=== PATIENT | female | born 1950 | race Caucasian/White ===

== ENCOUNTER → 2020-08-08 | Outpatient (CLI) | payer MEDICARE, OTHER, SELFPAY | END | disposition home or self-care (01) | LOC: MTDU 17:57 | PROVIDERS: PCP Internal Medicine; Referring Provider Nurse Practitioner Family; Visit Provider Nurse Practitioner Family | DX: Z20.828 Contact with and (suspected) exposure to other viral communicable diseases (principal) | CPT/HCPCS: 87635; C9803; U0003 ==

== ENCOUNTER → 2021-07-21 11:56 | Outpatient (CLI) | payer MEDICARE, OTHER, SELFPAY ==
[2021-07-21 15:15] LABS: Absolute Lymphocyte Count 1.86 X10^3/uL (0.83-4.51); Absolute Neutrophil Count 3.5 X10^3/uL (2.0-7.7); Basophil# 0.01 X10^3/uL; Basophil% 0.2 % (0-1); Eosinophil# 0.08 X10^3/uL; Eosinophils% 1.4 % (0-5); Hematocrit 43.1 % (37-47); Hemoglobin 13.5 g/dL (12.0-15.0); Lymphocyte # 1.86 X10^3/ul (0.83-4.51); Lymphocyte % 31.7 % (19-41); Mean Corp Hgb Conc 31.3 g/dL (32-36); Mean Corpuscular Hgb 29.5 pg (27.0-32.0); Mean Corpuscular Volume 94.1 fL (81-99); Monocyte# 0.41 X10^3/uL; NRBC Flagged by Analyzer 0 % (0-5); Neutrophil # 3.49 X10^3/uL (2.7-7.7); Neutrophil % 59.5 % (47-70); Platelet Count 193 K/mm3 (150-450); RBC Distribution Width CV 13.2 % (11.6-14.6); RBC Distribution Width SD 45.3 fl (35.1-43.9); Red Blood Count 4.58 M/mm3 (4.2-5.4); White Blood Count 5.9 K/mm3 (4.4-11.0)
[2021-07-21 15:21] LABS: ALB/GLOB Ratio 0.8 RATIO (0.9-2.4); AST(SGOT) 21 U/L (15-37); Alanine Aminotransfer ALT/SGPT 31 U/L (13-56); Albumin, Serum 3.8 g/dL (3.2-5.0); Alkaline Phosphatase 90 U/L (45-117); Anion Gap 5 (5-15); BUN 16 mg/dL (7-18); BUN/Creat Ratio 19.4 RATIO (10-20); Calcium,Total 9.4 mg/dL (8.5-10.1); Chloride 110 mmol/L (98-107); Cholesterol 235 mg/dL (200); Creatinine, Serum 0.82 mg/dL (0.55-1.02); EST Glomerular Filtration Rate 73 mL/min (>60); Est Glom Filt Rate - Afr Amer 88 mL/min (>60); Globulin 4.5 g/dL (2.2-4.2); Glucose 93 mg/dL (74-106); High Density Lipoprotein 81 mg/dL; Potassium 4.9 mmol/L (3.5-5.1); Protein, Total 8.3 g/dL (6.4-8.2); Sodium Level 144 mmol/L (136-145); Triglycerides 93 mg/dL; Very Low Density Lipoprotein 19 mg/dL (5-40)
== END ==
PROVIDERS: PCP Internal Medicine; Referring Provider Internal Medicine; Visit Provider Internal Medicine
DX: I10 Essential (primary) hypertension (principal)
CPT/HCPCS: 36415; 80053; 80061; 85025

== ENCOUNTER → 2021-08-22 12:53 | Outpatient (CLI) | payer MEDICARE, OTHER, SELFPAY ==
--- NOTE | 2021-08-22 13:02 | BD_ITS ---
STUDY: DUAL ENERGY X-RAY ABSORPTIOMETRY / DXA REASON FOR EXAM: Female, 71 years old. Osteopenia TECHNIQUE: Bone Mineral Density (BMD) measurements of lumbar spine and bilateral hips were obtained. COMPARISON: Comparison is made with prior examination dated 07/30/2017. FINDINGS: Lumbar Spine (L1-L4): g/cm2 (1.062) / T-score (0.1) / Z-score (2.2) Findings are suggestive of normal bone density with a low fracture risk. Left Femur Total: g/cm2 (0.865) / T-score (-0.6) / Z-score (0.8) Left Femoral Neck: g/cm2 (0.758) / T-score (-0.8) / Z-score (1.0) Right Femur Total: g/cm2 (0.867) / T-score (-0.6) / Z-score (0.9) Right Femoral Neck: g/cm2 (0.693) / T-score (-1.4) / Z-score (0.4) The T-Scores on the most recent prior examination were: Lumbar Spine (L1-L4): There has been improvement of bone density since the previous examination. Left Femur Total: which represents a worsening of 4.9%. Right Femur Total: which represents a worsening of 2.5%. BD/Dexa Bone Density Study IMPRESSION: The patient is considered osteopenic as outlined below according to World Bill Organization (WHO) criteria with a low fracture risk. There has been worsening of bone density since the previous examination. Reference Information: The T-score is the number of standard deviations above or below the standard which is normal for young adults at their peak bone mineral density. The World Health Organization (WHO) interprets the T-scores as follows: Above -1 Normal bone density Between -1 and -2.5 Osteopenia Equal to / or below -2.5 Osteoporosis As a practical clinical guideline, osteopenia may be graded as follows: Mild -1 through -1.5 Moderate -1.6 through -2.0 Severe -2.1 through -2.4 The Z-score is the number of standard deviations above or below age-matched controls. A Z-score of less than -1.5 would be considered abnormal. References: 1. NIH Osteoporosis and Related Bone Diseases www osteo.org 2. International Society for Clinical Densitometry www iscd.org 3. National Osteoporosis Foundation www nof.org Electronically Signed: Kenneth Parrish MD at 14:20 EDT , Service support ,
== END ==
PROVIDERS: PCP Internal Medicine; Visit Provider Internal Medicine
DX: Z78.0 Asymptomatic menopausal state (principal)
CPT/HCPCS: 77080

== ENCOUNTER → 2022-09-20 | Outpatient (CLI) | payer MEDICARE, OTHER, SELFPAY ==
--- NOTE | 2022-09-20 14:48 | BI_ITS ---
MAMMOGRAPHY - BILATERAL SCREENING REASON FOR EXAM: Female, 72 years old. Routine annual screening examination. PERTINENT HISTORY: Grandmother with breast cancer. TECHNIQUE: Digital bilateral breast nai (3D mammographic acquisition) in the CC and MLO projections. 2-D mediolateral oblique (MLO) and craniocaudad (CC) views of both breasts were obtained. CAD: Full Field Digital Mammography with Computer Added Detection was performed. COMPARISON: Comparison is made with prior examination dated 05/21/2019. FINDINGS: Breast Composition: The breasts are heterogeneously dense, which may obscure small masses. There is a 10.4 mm x 9.1 mm well-defined nodule in the slightly upper deep central portion of the left breast. Correlation with ultrasound is recommended. No other significant abnormalities are identified. BI/SCRN MAMM (CAD)W/NAI BILAT IMPRESSION: 10.4 mm x 9.1 mm well-defined nodule in the slightly upper deep central portion of the left breast. Correlation with ultrasound is recommended. ASSESSMENT CATEGORY: BIRADS Category 0: Incomplete. Need additional imaging evaluation. A letter regarding these results will be sent to the patient by the facility within 30 days. Approximately 10% of breast cancers are not detected by mammography. A normal mammogram should not delay biopsy of a clinically suspicious abnormality. [id number] Electronically Signed: Kenneth Parrish MD at 8:27 EST ,
== END | disposition home or self-care (01) ==
LOC: OPBI 14:47
PROVIDERS: PCP Internal Medicine; Visit Provider Internal Medicine
DX: Z12.31 Encounter for screening mammogram for malignant neoplasm of breast (principal); Z80.3 Family history of malignant neoplasm of breast
CPT/HCPCS: 77063; 77067

== ENCOUNTER → 2022-09-25 | Outpatient (CLI) | payer MEDICARE, OTHER, SELFPAY ==
--- NOTE | 2022-09-25 14:54 | US_ITS ---
STUDY: ULTRASOUND BREAST - LEFT REASON FOR EXAM: Female, 72 years old. Abnormal mammogram. TECHNIQUE: Axial and longitudinal images of the LEFT breast were performed with a high resolution ultrasound transducer. # OF IMAGES: 6 COMPARISON: Outside mammograms dated September 20, 2022 and prior breast ultrasound dated December 01, 2019. FINDINGS: LEFT Breast: At the 12:00 position of the left breast 3 cm from the nipple there are 2 anechoic structures, one measuring 1.2 cm x 7 mm 11 mm and another smaller one measuring approximately 5 mm. Both of these lesions are compatible with simple cysts. US/Breast Limited Unilateral IMPRESSION: Simple cyst in the left breast corresponding to the mammographic abnormality. Yearly screening mammogram recommended. ASSESSMENT CATEGORY: BIRADS Category 2: Benign. A letter regarding these results will be sent to the patient by the facility within 30 days. Electronically Signed: Tay Adam, at 10:58 EST ,
== END | disposition home or self-care (01) ==
LOC: OPUS 14:52
PROVIDERS: PCP Internal Medicine; Visit Provider Internal Medicine
DX: R92.8 Other abnormal and inconclusive findings on diagnostic imaging of breast (principal); N60.02 Solitary cyst of left breast
CPT/HCPCS: 76642

== ENCOUNTER → 2022-10-03 | Outpatient (CLI) | payer MEDICARE, OTHER, SELFPAY ==
[2022-10-03 12:27] LABS: Absolute Lymphocyte Count 1.76 X10^3/uL (0.83-4.51); Absolute Neutrophil Count 2.9 X10^3/uL (2.0-7.7); Basophil# 0.01 X10^3/uL; Basophil% 0.2 % (0-1); Eosinophil# 0.09 X10^3/uL; Eosinophils% 1.7 % (0-5); Hematocrit 41.7 % (37-47); Hemoglobin 13.4 g/dL (12.0-15.0); Lymphocyte # 1.76 X10^3/ul (0.83-4.51); Lymphocyte % 33.8 % (19-41); Mean Corp Hgb Conc 32.1 g/dL (32-36); Mean Corpuscular Hgb 29.6 pg (27.0-32.0); Mean Corpuscular Volume 92.3 fL (81-99); Mean Platelet Vol. 11.3 fl (6.2-12.0); Monocyte# 0.39 X10^3/uL; Monocyte% 7.5 % (0-10); NRBC Flagged by Analyzer 0 % (0-5); Neutrophil # 2.94 X10^3/uL (2.7-7.7); Neutrophil % 56.6 % (47-70); Platelet Count 185 K/mm3 (150-450); RBC Distribution Width CV 13.3 % (11.6-14.6); RBC Distribution Width SD 45.3 fl (35.1-43.9); Red Blood Count 4.52 M/mm3 (4.2-5.4); White Blood Count 5.2 K/mm3 (4.4-11.0)
[2022-10-03 12:47] LABS: ALB/GLOB Ratio 0.9 RATIO (0.9-2.4); AST(SGOT) 17 U/L (15-37); Alanine Aminotransfer ALT/SGPT 27 U/L (13-56); Albumin, Serum 3.8 g/dL (3.2-5.0); Alkaline Phosphatase 83 U/L (45-117); Anion Gap 6 (5-15); BUN 16 mg/dL (7-18); BUN/Creat Ratio 21.1 RATIO (10-20); Calcium,Total 9.3 mg/dL (8.5-10.1); Chloride 107 mmol/L (98-107); Cholesterol 258 mg/dL (200); Creatinine, Serum 0.76 mg/dL (0.55-1.02); EST Glomerular Filtration Rate 80 mL/min (>60); Est Glom Filt Rate - Afr Amer 97 mL/min (>60); Globulin 4.1 g/dL (2.2-4.2); Glucose 94 mg/dL (74-106); High Density Lipoprotein 84 mg/dL; Protein, Total 7.9 g/dL (6.4-8.2); Sodium Level 141 mmol/L (136-145); Triglycerides 79 mg/dL; Very Low Density Lipoprotein 16 mg/dL (5-40)
== END | disposition home or self-care (01) ==
LOC: BIMLAB 10:17
PROVIDERS: PCP Internal Medicine; Referring Provider Internal Medicine; Visit Provider Internal Medicine
DX: I10 Essential (primary) hypertension (principal)
CPT/HCPCS: 36415; 80053; 80061; 85025

== ENCOUNTER → 2023-09-24 | Outpatient (CLI) | payer MEDICARE, OTHER, SELFPAY ==
--- NOTE | 2023-09-24 10:53 | BI_ITS ---
MAMMOGRAPHY - BILATERAL SCREENING REASON FOR EXAM: Female, 73 years old. Routine annual screening examination. PERTINENT HISTORY: Grandmother with breast cancer. TECHNIQUE: Digital bilateral breast nai (3D mammographic acquisition) in the CC and MLO projections. 2-D mediolateral oblique (MLO) and craniocaudad (CC) views of both breasts were obtained. CAD: Full Field Digital Mammography with Computer Added Detection was performed. COMPARISON: Comparison is made with prior study dated September 20, 2022. FINDINGS: Breast Composition: The breasts are heterogeneously dense, which may obscure small masses. There are no dominant masses or suspicious calcifications. The previously seen 1 cm well-defined nodule in the slightly upper deep central portion of the left breast is not seen at this time. No other significant abnormalities are identified. BI/SCRN MAMM (CAD)W/NAI BILAT IMPRESSION: Stable bilateral screening mammogram. Yearly follow-up mammogram recommended. (A) ASSESSMENT CATEGORY: BIRADS Category 2: Benign. A letter regarding these results will be sent to the patient by the facility within 30 days. Approximately 10% of breast cancers are not detected by mammography. A normal mammogram should not delay biopsy of a clinically suspicious abnormality. [id number] Electronically Signed: Kenneth Parrish MD at 13:05 EST ,
--- NOTE | 2023-09-24 11:01 | BD_ITS ---
STUDY: DUAL ENERGY X-RAY ABSORPTIOMETRY / DXA REASON FOR EXAM: Female, 73 years old. Post Menopausal TECHNIQUE: Bone Mineral Density (BMD) measurements of lumbar spine and bilateral hips were obtained. COMPARISON: Comparison is made with prior study August 22, 2021. FINDINGS: Lumbar Spine (L1-L4): g/cm2 (1.075) / T-score (0.3) / Z-score (2.5) Findings are suggestive of normal bone density with a low fracture risk. Left Femur Total: g/cm2 (0.844) / T-score (-0.8) / Z-score (0.8) Left Femoral Neck: g/cm2 (0.723) / T-score (-1.1) / Z-score (0.8) Right Femur Total: g/cm2 (0.854) / T-score (-0.7) / Z-score (0.9) Right Femoral Neck: g/cm2 (0.7-0) / T-score (-1.2) / Z-score (0.7) The T-Scores on the most recent prior examination were: Lumbar Spine (L1-L4): There has been improvement of bone density since the previous examination. Left Femur Total: which represents a worsening of 2.4%. Right Femur Total: which represents a worsening of 1.4%. BD/Dexa Bone Density Study IMPRESSION: The patient is considered osteopenic as outlined below according to World Bill Organization (WHO) criteria with a low fracture risk. There has been worsening of bone density since the previous examination. Reference Information: The T-score is the number of standard deviations above or below the standard which is normal for young adults at their peak bone mineral density. The World Health Organization (WHO) interprets the T-scores as follows: Above -1 Normal bone density Between -1 and -2.5 Osteopenia Equal to / or below -2.5 Osteoporosis As a practical clinical guideline, osteopenia may be graded as follows: Mild -1 through -1.5 Moderate -1.6 through -2.0 Severe -2.1 through -2.4 The Z-score is the number of standard deviations above or below age-matched controls. A Z-score of less than -1.5 would be considered abnormal. References: 1. NIH Osteoporosis and Related Bone Diseases www osteo.org 2. International Society for Clinical Densitometry www iscd.org 3. National Osteoporosis Foundation www nof.org Electronically Signed: Kenneth Parrish MD at 8:06 EST ,
== END | disposition home or self-care (01) ==
LOC: OPBD 10:51
PROVIDERS: PCP Internal Medicine; Referring Provider Internal Medicine; Visit Provider Internal Medicine
DX: Z12.31 Encounter for screening mammogram for malignant neoplasm of breast (principal); Z78.0 Asymptomatic menopausal state
CPT/HCPCS: 77063; 77067; 77080

== ENCOUNTER → 2023-10-23 | Outpatient (CLI) | payer MEDICARE, OTHER, SELFPAY ==
[2023-10-23 12:33] LABS: Absolute Lymphocyte Count 1.86 X10^3/uL (0.83-4.51); Absolute Neutrophil Count 3.9 X10^3/uL (2.0-7.7); Basophil# 0.02 X10^3/uL; Basophil% 0.3 % (0-1); Eosinophils% 1.6 % (0-5); Hematocrit 41.8 % (37-47); Hemoglobin 13.4 g/dL (12.0-15.0); Lymphocyte # 1.86 X10^3/ul (0.83-4.51); Lymphocyte % 29.5 % (19-41); Mean Corp Hgb Conc 32.1 g/dL (32-36); Mean Corpuscular Hgb 29.5 pg (27.0-32.0); Mean Corpuscular Volume 92.1 fL (81-99); Mean Platelet Vol. 11.8 fl (6.2-12.0); Monocyte% 6.3 % (0-10); NRBC Flagged by Analyzer 0 % (0-5); Neutrophil # 3.91 X10^3/uL (2.7-7.7); Platelet Count 201 K/mm3 (150-450); RBC Distribution Width CV 13.2 % (11.6-14.6); RBC Distribution Width SD 44.7 fl (35.1-43.9); Red Blood Count 4.54 M/mm3 (4.2-5.4); White Blood Count 6.3 K/mm3 (4.4-11.0)
[2023-10-23 12:58] LABS: AST(SGOT) 17 U/L (15-37); Alanine Aminotransfer ALT/SGPT 25 U/L (13-56); Alkaline Phosphatase 81 U/L (45-117); Anion Gap 7 (5-15); BUN 21 mg/dL (7-18); BUN/Creat Ratio 25.3 RATIO (10-20); Chloride 109 mmol/L (98-107); Cholesterol 239 mg/dL (200); Creatinine, Serum 0.83 mg/dL (0.55-1.02); EST Glomerular Filtration Rate 72 mL/min (>60); Est Glom Filt Rate - Afr Amer 87 mL/min (>60); Globulin 3.9 g/dL (2.2-4.2); Glucose 99 mg/dL (74-106); High Density Lipoprotein 90 mg/dL; Potassium 4.1 mmol/L (3.5-5.1); Protein, Total 7.9 g/dL (6.4-8.2); Sodium Level 145 mmol/L (136-145); Triglycerides 67 mg/dL; Very Low Density Lipoprotein 13 mg/dL (5-40)
== END | disposition home or self-care (01) ==
LOC: BIMLAB 09:46
PROVIDERS: PCP Internal Medicine; Referring Provider Internal Medicine; Visit Provider Internal Medicine
DX: E78.5 Hyperlipidemia, unspecified (principal); I10 Essential (primary) hypertension
CPT/HCPCS: 36415; 80053; 80061; 85025

== ENCOUNTER 2023-10-30 00:54 | Emergency (ER) | payer MEDICARE, OTHER, SELFPAY ==
[2023-10-30 00:56] VITALS: BP 177/141; PULSE 63; RESP 15; TEMP 36.6; O2SAT 100; BMI 28.1
--- NOTE | 2023-10-30 01:09 | EX.ED.DYSGE1 ---
HPI History of Present Illness Chief Complaint: Other, Pain/Inj Informant: patient Onset/Context/Timing Onset: Weeks (1) Context: Sudden Onset Timing: Continuous Quality: Stabbing Location: Left cervical paraspinal muscles Worsened by: Left rotation and flexion of the cervical spine Relieved by: Nothing Narrative Narrative: Patient presents with neck pain that began 1 week ago. Patient states she woke up with the pain in her neck. Patient states it has been constant. Patient describes it as stabbing. Patient states it is mainly on the left side of her neck. Patient states the pain radiates up into her head. Patient admits to some nausea when the pain becomes severe. Patient denies any vomiting. Patient states her pain is worse with rotating her head to the left. Patient states nothing helps with it. Patient denies any paresthesias or weakness. Patient denies any trauma or injury. [facility] Medical History Arrhythmia Cerumen impaction Headache Health care maintenance Hearing loss History of cardiac murmur Hyperlipidemia Hypertension no sense of smell or taste Osteopenia Positive colorectal cancer screening using Cologuard test PVC (premature ventricular contraction) Rosacea Home Medications calcium carbonate 600 mg-vitamin D3 10 mcg (400 unit) capsule 1 cap PO DAILY 03/01/23 [History Last Taken Unknown] hydrocodone-acetaminophen 5-325mg 5mg-325mg 1 tab PO Q6H PRN PRN Pain 3 days #10 TABLETS 10/30/23 [Rx Last Taken Unknown] Allergy/AdvReac Type Severity Reaction Status Date / Time No Known Allergies Allergy Verified 10/29/23 14:44 Family History Sister Diabetes Depression Myocardial infarction Father Depression Pancreatic cancer Grandfather Alcoholism Mother Lung cancer Surgical History H/O tubal ligation History of 2 sections History of cataract surgery Social History Smoking Status: Never smoker alcohol intake: current alcohol intake frequency: holidays/special occasions only Alcohol type: beer and wine substance use type: does not use what type of physical activity do you participate in: walking frequency: daily ROS ROS ED Constitutional Constitutional ED: Denies chills or fever(s) Eyes Eyes: Denies blurry vision or change in vision ENT ENT ED: Denies rhinorrhea or sore throat Cardiovascular Cardiovascular: Denies chest pain or palpitations Respiratory/Chest Respiratory/Chest: Denies cough or dyspnea Gastrointestinal Gastrointestinal: Reports nausea; Denies vomiting Genitourinary Genitourinary ED: Denies dysuria or hematuria Musculoskeletal Musculoskeletal: Reports neck pain; Denies back pain Integumentary Denies abscess or rash Neurologic Neurologic: Reports headache(s); Denies weakness Allergic/Immunologic Allergic/Immunologic ED: Denies mouth swelling or urticaria EXAM Physical Exam Const Vital Signs: 10/30/23 00:56 10/30/23 01:01 Temperature 97.8 F Temperature Source Temporal Pulse Rate 63 Respiratory Rate 15 Respiratory Effort Normal Non-Labored Respiratory Pattern Normal Blood Pressure 177/141 H Blood Pressure Mean 153 Pulse Ox 100 Oxygen Delivery Method Room Air Positive well nourished and well developed General Appearance ED: well developed and NAD HEENT Reports moist mucous membranes Neck supple and no JVD Neck Narrative: There is tenderness and spasm of the left cervical paraspinal muscles. There is no midline tenderness. There is no bony crepitance or step-off noted. Range of motion of the cervical spine was limited in all motions secondary to pain. General: tenderness Resp normal respiratory effort and clear to auscultation bilaterally Cardio regular rate and regular rhythm Extremity normal to inspection General Extremety ED: Negative for edema or tenderness General Extremity: Negative for edema Neuro oriented x3, CN's II-XII intact bilaterally and no sensory deficits noted Sensorium / Orientation: alert Motor Exam: strength 5/5 throughout MDM MDM MDM Narrative Medical decision making narrative: Differential diagnosis includes acute cervical strain, cervical radiculopathy, and occult cervical fracture. CT scan of the cervical spine will be obtained to assess for occult fracture and spondylolisthesis. Radiography Diagnostic Testing: Clinical Impression(s) from Imaging Studies Cervical Spine CT 10/30/23 01:29 IMPRESSION: Moderate to severe degenerative disc disease at C5-6 and C6-7 with no significant canal or foraminal stenosis at any level. Electronically Signed: Scott Hare MD at 2:52 EST Reading Location ID and State: [facility] / [place] Tel , Service support , CT scan of the cervical spine was obtained. There is moderate to severe degenerative disc disease at C5-6 and C6-7. There is no foraminal stenosis or canal stenosis. There is no acute fracture or spondylolisthesis. This was interpreted by the radiologist was also independently reviewed by myself. Treatment and Re-Evaluation :: Patient was given a dose of Ativan and morphine here. Patient was advised of her findings. Patient was given a prescription for a short course of [place]. Patient was instructed to use ice to the area. Patient was instructed to follow-up with her primary care physician in 5 to 7 days. Patient understood and was agreeable with the plan. All questions were answered. Discharge Plan Triage Chief Complaint: Other, Pain/Inj ED Provider: Eugene Pearl Dx/Rx/DC Orders Clinical Impression: Acute cervical myofascial strain, Hypertension Instructions: ED Neck Sprain or Strain Prescriptions: New hydrocodone-acetaminophen [hydrocodone-acetaminophen] 5-325 mg tablet 1 tab PO Q6H PRN PRN (Reason: Pain) 3 Days Qty: 10 0RF No Action calcium carbonate-vitamin D3 600 mg-10 mcg (400 unit) capsule 1 cap PO DAILY Primary Care Provider: Junior Robert Referrals: Junior Robert MD [Primary Care Provider] - 3-5 Days Disposition Disposition: Home, Self Care
--- NOTE | 2023-10-30 01:29 | CT_ITS ---
EXAM: CT CERVICAL SPINE WITHOUT INTRAVENOUS CONTRAST CLINICAL INDICATION: radiculopathy TECHNIQUE: Helically acquired images were obtained of the cervical spine without intravenous contrast. 2D reformatted images were reviewed. CTDIvol = ( 16.38 ) mGy, DLP = ( 342.64 ) mGycm This CT exam was performed using one or more of the following dose reduction techniques: automated exposure control, adjustment of the mA and/or kV according to patient size, and/or use of iterative reconstruction technique. COMPARISON: No relevant prior studies available. FINDINGS: VERTEBRAE: Loss of lordosis is probably due to muscle spasm and/or positioning. Moderate to severe degenerative disc disease at C5-6 and C6-7. 2-3 mm of degenerative anterolisthesis C7 on T1 secondary to severe facet arthrosis bilaterally at this level. No acute or healing fracture or any other unusual lytic or sclerotic lesions of bone. DISCS/SPINAL CANAL/NEURAL FORAMINA: No more than mild degenerative neural foraminal stenosis at any level of the cervical spine. No critical central canal stenosis. SOFT TISSUES: Unremarkable. No prevertebral soft tissue swelling. LYMPH NODES: Unremarkable. No cervical adenopathy. LUNG APICES: Lung apices are clear. OTHER FINDINGS: No hemorrhage or hematoma. CT/Spine Cervical without Contras IMPRESSION: Moderate to severe degenerative disc disease at C5-6 and C6-7 with no significant canal or foraminal stenosis at any level. Electronically Signed: Scott Hare MD at 2:52 EST ,
[2023-10-30] MEDS: LORazepam 2 MG/ML Syringe 0.5 MG IM (01:50)
[2023-10-30] MEDS: Morphine 4 MG/ML Syringe IM (01:52)
== END 2023-10-30 03:15 | disposition home or self-care (01) ==
PROVIDERS: Emergency Provider Emergency Medicine; PCP Internal Medicine; Visit Provider Emergency Medicine
DX: S16.1XXA Strain of muscle, fascia and tendon at neck level, initial encounter (principal); I10 Essential (primary) hypertension; E78.5 Hyperlipidemia, unspecified; R51.9 Headache, unspecified; X58.XXXA Exposure to other specified factors, initial encounter
CPT/HCPCS: 72125; 96372; 99282

== ENCOUNTER 2023-11-27 06:54 | Day surgery (SDC) | payer MEDICARE, OTHER, SELFPAY ==
--- OUTSIDE RECORDS SUMMARY | 2023-11-27 07:02 | XMS RPT_ITS | CCD ---
Author Name Unknown Address [address] [place] [address] Organization [facility] Care Team Providers Care [employer] Worker Name Role Phone Junior Robert MD Unavailable [phone] Kristal Kerr Unavailable Unavailable Junior Robert MD Unavailable [phone] Cindy Perez Primary Care Provider UnavailCindy Curtis Primary Care Provider UnavailCARY Pierre Attending Unavailable CINDY PEREZ Primary Care Unavailable CARY VERMA Attending Unavailable CINDY PEREZ Primary Care Unavailable CARY VERMA Attending Unavailable CINDY PEREZ Primary Care Unavailable CARY VERMA Attending Unavailable CINDY PEREZ Primary Care Unavailable CARY VERMA Attending Unavailable CINDY PEREZ Primary Care Unavailable Medications Completed/Discontinued Medications Medication Drug Class(es) Dates Sig (Normalized) Sig (Original) metroNIDAZOLE 10 mg/ml topical cream (4 sources) Nitroimidazole Antimicrobial Start: 01-16-2022 metroNIDAZOLE 1 % cream Use 1-2 times daily to affected areas 60 g 1 01/16/2022 Active Problems Active Problems Problem Classification Problem Date Documented Da te Episodic/Chronic Cardiac dysrhythmias (6 sources) Atrial premature depolarization; 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] Onset: 07-20-2016 07-24-2016 Chronic Other inflammatory condition of skin (2 sources) Rosacea; Translations: [Rosacea, unspecified] Chronic Other inflammatory condition of skin (1 source) Rosacea, unspecified; Translations: [Rosacea] Onset: 07-06-2022 Chronic Other inflammatory condition of skin (1 source) Pityriasis folliculorum; 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] Episodic Other skin disorders (1 source) Skin tag; Translations: [Other hypertrophic disorders of the skin] Episodic Residual codes; unclassified (3 sources) Patient encounter status; Translations: [Encounter for cosmetic surgery] Episodic Unclassified (2 sources) Screening - health check; Translations: [Encounter for general adult medical examination without abnormal findings] Onset: 07-17-2017 07-17-2017 Unclassified (2 sources) Procedure carried out on subject; Translations: [Encounter for screening for diseases of the blood and blood-forming organs and certain disorders involving the immune mechanism] Onset: 07-17-2017 07-17-2017 Past or Other Problems Problem Classification Problem Date Documented Date Episodic/Chronic Cardiac dysrhythmias (3 sources) Palpitations; Translations: [Palpitations] Onset: 07-24-2016 07-24-2016 Episodic Heart valve disorders (3 sources) Heart murmur; Translations: [Cardiac murmur, unspecified] Onset: 07-24-2016 07-24-2016 Episodic Other screening for suspected conditions (not mental disorders or infectious disease) (3 sources) Electrocardiogram abnormal; Translations: [Abnormal electrocardiogram [ECG] [EKG]] Onset: 08-15-2016 08-15-2016 Episodic Other skin disorders (2 sources) Alopecia; Translations: [Nonscarring hair loss, unspecified] Onset: 07-17-2017 07-17-2017 Episodic Other skin disorders (4 sources) Hirsutism; Translations: [Hirsutism] Onset: 08-16-2004 08-16-2004 Episodic Residual codes; unclassified (2 sources) Family history of alcoholism; Translations: [Family history of alcohol abuse and dependence] 07-17-2017 Episodic Residual codes; unclassified (1 source) Encounter for cosmetic surgery; Translations: [Encounter for cosmetic procedure] Onset: 04-13-2022 Episodic Results Test Name Value Interpretation Reference Range Facil ity Vital Signs Date Time Vital Sign Value Performing Clinician Facility 07-17-2017 09:15-0400 BMI (Body Mass Index) 29.78 kg/m2 Junior Robert MD [facility] Work Phone: 07-17-2017 09:15-0400 Body Temperature 98.7 [degF] Junior Robert MD [facility] Work Phone: 07-17-2017 09:15-0400 BP Diastolic 89 mm[Hg] Junior Robert MD [facility] Work Phone: 07-17-2017 09:15-0400 BP Systolic 140 mm[Hg] Junior Robert MD [facility] Work Phone: 07-17-2017 09:15-0400 Height 162.56 cm Junior Robert MD [facility] Work Phone: 07-17-2017 09:15-0400 Pulse (Heart Rate) 86 /min Junior Robert MD [facility] Work Phone: 07-17-2017 09:15-0400 Weight 78.7 kg Junior Robert MD [facility] Work Phone: 07-24-2016 14:42-0400 Heart rate 64 /min Kristal Marthey [facility] Work Phone: 07-24-2016 14:27-0400 BMI (Body Mass Index) 28.08 kg/m2 Kristal Marthey [facility] Work Phone: 07-24-2016 14:27-0400 BP Diastolic 84 mm[Hg] Kristal Marthey [facility] Work Phone: 07-24-2016 14:27-0400 BP Systolic 142 mm[Hg] Kristal Marthey [facility] Work Phone: 07-24-2016 14:27-0400 BSA (Body Surface Area) 1.89 m2 Kristal Marthey [facility] Work Phone: 07-24-2016 14:27-0400 Height 167.64 cm Kristal Marthey [facility] Work Phone: 07-24-2016 14:27-0400 Pulse (Heart Rate) 72 /min Kristal Marthey [facility] Work Phone: 07-24-2016 14:27-0400 Respiratory Rate 16 /min Kristal Marthey [facility] Work Phone: 07-24-2016 14:27-0400 Weight 78.93 kg Kristal Kerr [facility] Work Phone: Encounters Encounter Date Encounter Type Care Provider Facility Start: 07-06-2022 End: 07-07-2022 ambulatory CARY VERMA Facility:[facility] Start: 07-06-2022 End: 07-06-2022 Patient encounter procedure Cary Verma MD Work Phone: Dermatology Procedures Date Procedure Procedure Detail Performing Clinician Start: 05-21-2019 Mammography Cary Verma MD Work Phone: Start: 07-17-2017 End: 08-08-2017 *CBC with Differential Veronica Pelayo Start: 07-17-2017 End: 08-08-2017 *CMP Complete Metabolic Panel Junior Robert MD Work Phone: Start: 07-17-2017 Screening for osteoporosis Screening for osteoporosis Junior Robert MD Start: 07-17-2017 End: 07-17-2017 Dietary management education, guidance, and counseling Junior Robert MD Start: 07-17-2017 Screening for osteoporosis Screening for osteoporosis Junior Robert MD Start: 07-24-2016 End: 07-24-2016 Dietary management education, guidance, and counseling Kristal Kerr Start: 07-24-2016 End: 08-22-2016 Cardiovascular stress test using treadmill Onofre Han MD Start: 07-24-2016 End: 07-24-2016 Ecg routine ecg w/least 12 lds w/i&r Onofre Han MD Start: 07-24-2016 End: 07-24-2016 Follow Up Appt 6 weeks Onofre Han MD Start: 07-24-2016 End: 07-24-2016 MMM Onofre Han MD Start: 07-24-2016 End: 08-22-2016 Cardiovascular stress test using treadmill Onofre Han MD Start: 07-24-2016 End: 07-24-2016 Ecg routine ecg w/least 12 lds w/i&r Onofre Han MD Start: 07-24-2016 End: 07-24-2016 Follow Up Appt 6 weeks Onofre Han MD Start: 07-24-2016 End: 07-24-2016 MMM Onofre Han MD Plan of Treatment Date Care Activity Detail Author Start: 07-05-2022 Influenza vaccination [facility] Start: 04-17-2022 COVID-19 VACCINE (5 - Booster for Pfizer series) COVID-19 VACCINE (5 - Booster for Pfizer series) [facility] Start: 11-04-2021 ADVANCE DIRECTIVE DISCUSSION ADVANCE DIRECTIVE DISCUSSION [facility] Start: 11-04-2021 DEPRESSION ASSESSMENT DEPRESSION ASSESSMENT [facility] Start: 05-21-2020 Mammography MAMMOGRAM [facility] Start: 07-17-2017 End: 07-25-2017 *CBC with Differential *CBC with Differential [facility] Work Phone: Start: 07-17-2017 End: 07-25-2017 *CMP Complete Metabolic Panel *CMP Complete Metabolic Panel [facility] Work Phone: Start: 07-17-2017 End: 07-17-2017 DEXA scan DEXA scan [facility] Work Phone: Start: 07-17-2017 End: 07-17-2017 Follow Up Appt 1 year Follow Up Appt 1 year [facility] Work Phone: Start: 07-17-2017 End: 07-17-2017 Follow-up visit Follow Up as needed [facility] Work Phone: Start: 07-17-2017 End: 07-17-2017 Appointment Appointment [facility] Work Phone: Start: 07-17-2017 End: 07-17-2017 *CBC with Differential *CBC with Differential [facility] Work Phone: Start: 07-17-2017 End: 07-17-2017 *CMP Complete Metabolic Panel *CMP Complete Metabolic Panel [facility] Work Phone: Start: 07-17-2017 End: 07-17-2017 DEXA scan DEXA scan [facility] Work Phone: Start: 07-17-2017 End: 07-17-2017 Follow Up Appt 1 year Follow Up Appt 1 year [facility] Work Phone: Start: 07-17-2017 End: 07-17-2017 Follow-up visit Follow Up as needed [facility] Work Phone: Start: 01-03-2017 BONE DENSITY BONE DENSITY [facility] Start: 01-03-2017 PNEUMOCOCCAL: 65+ (1 - PCV) PNEUMOCOCCAL: 65+ (1 - PCV) [facility] Start: 01-03-2017 PNEUMOVAX AGE 65 AND OVER WITH 5YR LOOKBACK (#1) PNEUMOVAX AGE 65 AND OVER WITH 5YR LOOKBACK (#1) [facility] Start: 07-24-2016 End: 07-24-2016 Cardiovascular stress test using treadmill Treadmill stress test (no imaging) [facility] Work Phone: Start: 07-24-2016 End: 07-24-2016 Ecg routine ecg w/least 12 lds w/i&r EKG (In office) [facility] Work Phone: Start: 07-24-2016 End: 08-15-2016 Echocardiography Echocardiogram (complete) [facility] Work Phone: Start: 07-24-2016 End: 07-24-2016 Follow Up Appt 6 weeks Follow Up Appt 6 weeks [facility] Work Phone: Start: 07-24-2016 End: 07-24-2016 MMM MMM [facility] Work Phone: Start: 07-24-2016 End: 07-24-2016 Cardiovascular stress test using treadmill Treadmill stress test (no imaging) [facility] Work Phone: Start: 07-24-2016 End: 07-24-2016 Ecg routine ecg w/least 12 lds w/i&r EKG (In office) [facility] Work Phone: Start: 07-24-2016 End: 08-15-2016 Echocardiography Echocardiogram (complete) [facility] Work Phone: Start: 07-24-2016 End: 07-24-2016 Follow Up Appt 6 weeks Follow Up Appt 6 weeks [facility] Work Phone: Start: 07-24-2016 End: 07-24-2016 MMM MMM [facility] Work Phone: Start: 01-03-2002 SHINGRIX VACCINE (1 of 2) SHINGRIX VACCINE (1 of 2) [facility] Start: 01-03-1997 COLOGUARD (FIT-DNA) COLOGUARD (FIT-DNA) [facility] Start: 01-03-1997 Colonoscopy COLONOSCOPY [facility] Start: 01-03-1997 COLORECTAL CANCER SCREENING COLORECTAL CANCER SCREENING [facility] Start: 01-03-[address] COLONOGRAPHY [facility] Start: 01-03-1997 DIABETES SCREEN DIABETES SCREEN [facility] Start: 01-03-1997 FECAL OCCULT BLOOD FECAL OCCULT BLOOD [facility] Start: 01-03-1997 LIPID SCREEN LIPID SCREEN [facility] Start: 01-03-1997 SIGMOIDOSCOPY SIGMOIDOSCOPY [facility] Start: 01-03-1971 Urine microalbumin profile DTAP,TDAP,TD (1 - Tdap) [facility] Start: 01-03-1970 HEPATITIS C SCREENING HEPATITIS C SCREENING [facility] Start: 1964 Adult depression screening assessment DEPRESSION SCREENING [facility] Payers Date Payer Category Payer Private Health Insurance [facility] AARP SUPPLEMENT [id number] 2017-Present [phone] [address] [place] [address] Indemnity [id number] 2017 Private Health Insurance [facility] AARP SUPPLEMENT [id number] 2017-Present [phone] [address] [place] [address] Indemnity [id number] 2017 Unknown [id number] 2017 Medicare MEDICARE MEDICAR E A AND B [id number] 2017-Present [phone] [place] [address] Medicare [id number] 2017 Medicare MEDICARE MEDICAR E A AND B [id number] 2017-Present [phone] [place] [address] Medicare [id number] 2017 Medicare [id number] Social History Date Type Detail Facility [facility]: [facility]21-[facility] Start: 04-21-2018 Tobacco use and exposure Smokeless t obacco non-user [facility] Start: 01-16-2022 End: 07-10-2022 Alcohol intake Current drinker of alcohol (finding) [facility] Start: 04-21-2018 History SDOH Alcohol Comment occasional [facility] Start: 1950 Sex Assigned At Not on file [facility] Start: 03-06-2022 End: 07-06-2022 Exposure to SARS-CoV-2 (event) Not sure [facility] Clinical Notes 01-16-2022 to 08-31-2022 Ying Morse LPN - 08/31/2022 10:08 AM EDTPatient Kerline Verma MD - 05/25/2022 3:45 PM EDTPatient Kerline Verma MD - 04/13/2022 11:30 AM EDTPatient Instructions Note Date & Type Note Facility 08-31-2022 Note HNO ID: [id number] Author: Ying Morse LPN Service: ? Author Type: ? Type: Progress Notes Filed: 08/31/2022 2:15 PM Note Text: EST Patient LV: 05/25/2022 Chief Complaint: Rosacea History of Present Ilness: Ramonita Lopez is a 72 year old female Patient is here for: 1) Rosacea follow up Current treatment vbeam laser Feels skin is getting worse Third treatment today Would like to discuss other treatment options Also using metrogel, states it was thousands of dollars Pertinent Past Medical History: Rosacea Hirsutism Review of Systems: Constitutional: Denies fever, chills, night sweats, unintentional weight loss. Skin per HPI. No other new/concerning skin growth. Physical Exam: General: well appearing, of stated age, in no acute distress Neurology: alert and oriented times three Psychiatry: in a happy mood Skin: Lay skin type: I Skin exam performed of face Skin exam normal with the exception of: Diffuse erythema TLGs and pink papules over cheeks forehead chin Assessment and Plan: 1. Rosacea, flaring 2. Pityrosporum folliculitis - Unclear if flaring is related to vbeam laser or if there is something else going on - Recommending discontinuing vbeam treatments at this time - Continue metrogel - Start permethrin twice daily - Start sulfa wash twice daily Return to clinic 4 weeks or sooner if something concerning arises. The documentation for this note was completed by Tashia Otto RN acting as scribe for Cary Verma MD. July 06, 2022 3:51 PM. Tashia Otto RN I agree with the Chief Complaint, ROS, and Past Histories independently gathered by the clinical sales support assistant and the remaining scribed note accurately describes my personal service to the patient. Cary Verma MD July 06, [address] [facility] 08-31-2022 History of Presen t illness Narrative EST Patient LV: 05/25/2022 Chief Complaint: Rosacea History of Present Ilness: Ramonita Lopez is a 72 year old female Patient is here for: 1) Rosacea follow up Current treatment vbeam laser Feels skin is getting worse Third treatment today Would like to discuss other treatment options Also using metrogel, states it was thousands of dollars Pertinent Past Medical History: Rosacea Hirsutism Review of Systems: Constitutional: Denies fever, chills, night sweats, unintentional weight loss. Skin per HPI. No other new/concerning skin growth. Physical Exam: General: well appearing, of stated age, in no acute distress Neurology: alert and oriented times three Psychiatry: in a happy mood Skin: Lay skin type: I Skin exam performed of face Skin exam normal with the exception of: Diffuse erythema TLGs and pink papules over cheeks forehead chin Assessment and Plan: 1. Rosacea, flaring 2. Pityrosporum folliculitis - Unclear if flaring is related to vbeam laser or if there is something else going on - Recommending discontinuing vbeam treatments at this time - Continue metrogel - Start permethrin twice daily - Start sulfa wash twice daily Return to clinic 4 weeks or sooner if something concerning arises. The documentation for this note was completed by Tashia Otto RN acting as scribe for Cary Verma MD. July 06, 2022 3:51 PM. Tashia Otto RN I agree with the Chief Complaint, ROS, and Past Histories independently gathered by the clinical sales support assistant and the remaining scribed note accurately describes my personal service to the patient. Cary Verma MD July 06, 2022 documented in this encounter [facility] 07-06-2022 Note HNO ID: [id number] Author: Ying Morse LPN Service: ? Author Type: ? Type: Progress Notes Filed: 08/31/2022 10:06 AM Note Text: EST Patient LV: 05/25/2022 Chief Complaint: Rosacea History of Present Ilness: Ramonita Lopez is a 72 year old female Patient is here for: 1) Rosacea follow up Current treatment vbeam laser Feels skin is getting worse Third treatment today Would like to discuss other treatment options Also using metrogel, states it was thousands of dollars Pertinent Past Medical History: Rosacea Hirsutism Specialty Problems Dermatology Problems Hirsutism Review of Systems: Constitutional: Denies fever, chills, night sweats, unintentional weight loss. Skin per HPI. No other new/concerning skin growth. Physical Exam: General: well appearing, of stated age, in no acute distress Neurology: alert and oriented times three Psychiatry: in a happy mood Skin: Lay skin type: I Skin exam performed of face Skin exam normal with the exception of: Diffuse erythema TLGs and pink papules over cheeks forehead chin Assessment and Plan: 1. Rosacea, flaring 2. Pityrosporum folliculitis - Unclear if flaring is related to vbeam laser or if there is something else going on - Recommending discontinuing vbeam treatments at this time - Continue metrogel - Start permethrin twice daily - Start sulfa wash twice daily Return to clinic 4 weeks or sooner if something concerning arises. The documentation for this note was completed by Tashia Otto RN acting as scribe for Cary Verma MD. July 06, 2022 3:51 PM. Tashia Otto RN I agree with the Chief Complaint, ROS, and Past Histories independently gathered by the clinical sales support assistant and the remaining scribed note accurately describes my personal service to the patient. Cary Verma MD July 06, [address] [facility] 07-03-2022 Instructions Tashia Otto RN - 07/03/2022 3:53 PM EDT documented in this encounter [facility] 05-25-2022 Note HNO ID: [id number] Author: Cary Verma MD Service: ? Author Type: Physician Type: Progress Notes Filed: 05/25/2022 4:13 PM Note Text: Established Patient RUBIA: 04/13/2022 Patient states her rosacea is okay but would like it to be gone LASER SURGERY PROCEDURAL TIME OUT: Time out verification includes: Audible time-out documented: Yes. Two Patient Identifiers Correct side and site marking Accurate Consent Agreement on the procedure to be done Correct Positioning Imaging and Test Results Properly Labeled and Displayed if applicable Safety Precautions Based on Patient History or Medication ANESTHETIC: ice DX: Rosacea LASER PROCEDURE: V-beam PROTECTIVE EYEWEAR APPLIED TO PATIENT'S EYES: goggles. ALL PERSONNEL IN THE ROOM ARE WEARING PROTECTIVE GOGGLES SPECIFIC TO THE LASER WAVELENGTH FOR THIS TREATMENT. TREATMENT #: 3 LASER: v-beam Full face LASER: V BEAM SPOT SIZE:3 x 10 mm; ENERGY FLUENCE: 14.50J/cm2; MODE (TIME): 40 msec; SPRAY DELAY: 30/20;NUMBER OF PULSES: 17 SPOT SIZE:10 mm; ENERGY FLUENCE: 8.0J/cm2; MODE (TIME): 10 msec; SPRAY DELAY:30/20 ;NUMBER OF PULSES: 345 COMMENTS: Patient tolerated procedure well. and Post care instructions provided, understanding verbalized. Sign Out Discussion: Completed Post op instructions given / with verbal understanding Skin Care after Laser Treatment. Charge Code: $200 V-beam laser full face Return to clinic 6-8 weeks The documentation for this note was completed by Susan Garcia RN acting as scribe for Cary Verma MD. May 25, 2022 3:45 PM. I agree with the Chief Complaint, ROS, and Past Histories independently gathered by the clinical sales support assistant and the remaining scribed note accurately describes my personal service to the patient. Dr. Cary Verma May 25, [address] [facility] 05-25-2022 History of Presen t illness Narrative Established Patient RUBIA: 04/13/2022 Patient states her rosacea is okay but would like it to be gone LASER SURGERY PROCEDURAL TIME OUT: Time out verification includes: Audible time-out documented: Yes. Two Patient Identifiers Correct side and site marking Accurate Consent Agreement on the procedure to be done Correct Positioning Imaging and Test Results Properly Labeled and Displayed if applicable Safety Precautions Based on Patient History or Medication ANESTHETIC: ice DX: Rosacea LASER PROCEDURE: V-beam PROTECTIVE EYEWEAR APPLIED TO PATIENT'S EYES: goggles. ALL PERSONNEL IN THE ROOM ARE WEARING PROTECTIVE GOGGLES SPECIFIC TO THE LASER WAVELENGTH FOR THIS TREATMENT. TREATMENT #: 3 LASER: v-beam Full face LASER: V BEAM SPOT SIZE:3 x 10 mm; ENERGY FLUENCE: 14.50J/cm2; MODE (TIME): 40 msec; SPRAY DELAY: 30/20;NUMBER OF PULSES: 17 SPOT SIZE:10 mm; ENERGY FLUENCE: 8.0J/cm2; MODE (TIME): 10 msec; SPRAY DELAY:30/20 ;NUMBER OF PULSES: 345 COMMENTS: Patient tolerated procedure well. and Post care instructions provided, understanding verbalized. Sign Out Discussion: Completed Post op instructions given / with verbal understanding Skin Care after Laser Treatment. Charge Code: $200 V-beam laser full face Return to clinic 6-8 weeks The documentation for this note was completed by Susan Garcia RN acting as scribe for Cary Verma MD. May 25, 2022 3:45 PM. I agree with the Chief Complaint, ROS, and Past Histories independently gathered by the clinical sales support assistant and the remaining scribed note accurately describes my personal service to the patient. Dr. Cary Verma May 25, 2022 documented in this encounter [facility] 05-25-2022 Instructions Susan Garcia RN - 05/25/2022 3:45 PM EDT V-beam Post Care Instructions It is normal for the skin to be red and swollen after your laser treatment. Most of the redness and swelling subsides within 24 to 48 hours, but occasionally can last for up to one week. -It is fine to wear makeup on the treated area the day after treatment -Do not rub, scratch, or pick at the treated area -You may apply ice to reduce swelling and discomfort for the first 4 hours after your treatment- it is best to ice immediately after your treatment and for 10 minutes of each hour for the 4 hours after your treatment -Do not exercise for 24 hours after your treatment -Please call the office immediately if the area becomes tender, reddened or shows signs of infection. - Avoid exposure to the sun. If sun exposure is expected, apply an SPF 30 or higher sunblock to prevent pigmentation changes until the lesion is healed. Care Of The Treated Area -You can apply a gentle moisturizer or Aqpahor/Vaseline to the treated area. It is important to keep the area moist until healed. -Showers are permitted, but gently pat the area dry. Do not rub with a towel or washcloth as the area is extremely delicate while the bruising (purpura) are present. -Any discomfort you may have (usually not lasting more than a few hours, if any) can be relieved with acetaminophen (Tylenol) or ice packs. If you have any questions or concern, please call the office where you had your treatment. documented in this encounter [facility] 04-13-2022 Note HNO ID: [id number] Author: Cary Verma MD Service: ? Author Type: Physician Type: Progress Notes Filed: 04/13/2022 11:38 AM Note Text: Established Patient RUBIA: 03/16/2022 LASER SURGERY PROCEDURAL TIME OUT: Time out verification includes: Audible time-out documented: Yes. Two Patient Identifiers Correct side and site marking Accurate Consent Agreement on the procedure to be done Correct Positioning Imaging and Test Results Properly Labeled and Displayed if applicable Safety Precautions Based on Patient History or Medication ANESTHETIC: ice DX: Rosacea LASER PROCEDURE: V-beam PROTECTIVE EYEWEAR APPLIED TO PATIENT'S EYES: goggles. ALL PERSONNEL IN THE ROOM ARE WEARING PROTECTIVE GOGGLES SPECIFIC TO THE LASER WAVELENGTH FOR THIS TREATMENT. TREATMENT #: 2 LASER: v-beam LASER: V BEAM SPOT SIZE:3 x 10 mm; ENERGY FLUENCE: 14.50J/cm2; MODE (TIME): 40 msec; SPRAY DELAY: 30/20;NUMBER OF PULSES: 34 SPOT SIZE:10 mm; ENERGY FLUENCE: 7.5J/cm2; MODE (TIME): 10 msec; SPRAY DELAY:30/20 ;NUMBER OF PULSES: 275 COMMENTS: Patient tolerated procedure well. and Post care instructions provided, understanding verbalized. Sign Out Discussion: Completed Post op instructions given / with verbal understanding Skin Care after Laser Treatment. Charge Code: $300 V-beam laser full face Return to clinic 6-8 weeks The documentation for this note was completed by Susan Garcia RN acting as scribe for Cary Verma MD. April 13, 2022 11:08 AM. I agree with the Chief Complaint, ROS, and Past Histories independently gathered by the clinical sales support assistant and the remaining scribed note accurately describes my personal service to the patient. Dr. Cary Verma April 13, [address] [facility] 04-13-2022 History of Presen t illness Narrative Established Patient RUBIA: 03/16/2022 LASER SURGERY PROCEDURAL TIME OUT: Time out verification includes: Audible time-out documented: Yes. Two Patient Identifiers Correct side and site marking Accurate Consent Agreement on the procedure to be done Correct Positioning Imaging and Test Results Properly Labeled and Displayed if applicable Safety Precautions Based on Patient History or Medication ANESTHETIC: ice DX: Rosacea LASER PROCEDURE: V-beam PROTECTIVE EYEWEAR APPLIED TO PATIENT'S EYES: goggles. ALL PERSONNEL IN THE ROOM ARE WEARING PROTECTIVE GOGGLES SPECIFIC TO THE LASER WAVELENGTH FOR THIS TREATMENT. TREATMENT #: 2 LASER: v-beam LASER: V BEAM SPOT SIZE:3 x 10 mm; ENERGY FLUENCE: 14.50J/cm2; MODE (TIME): 40 msec; SPRAY DELAY: 30/20;NUMBER OF PULSES: 34 SPOT SIZE:10 mm; ENERGY FLUENCE: 7.5J/cm2; MODE (TIME): 10 msec; SPRAY DELAY:30/20 ;NUMBER OF PULSES: 275 COMMENTS: Patient tolerated procedure well. and Post care instructions provided, understanding verbalized. Sign Out Discussion: Completed Post op instructions given / with verbal understanding Skin Care after Laser Treatment. Charge Code: $300 V-beam laser full face Return to clinic 6-8 weeks The documentation for this note was completed by Susan Garcia RN acting as scribe for Cary Verma MD. April 13, 2022 11:08 AM. I agree with the Chief Complaint, ROS, and Past Histories independently gathered by the clinical sales support assistant and the remaining scribed note accurately describes my personal service to the patient. Dr. Cary Verma April 13, 2022 documented in this encounter [facility] 04-13-2022 Instructions Susan Garcia RN - 04/13/2022 11:30 AM EDT V-beam Post Care Instructions It is normal for the skin to be red and swollen after your laser treatment. Most of the redness and swelling subsides within 24 to 48 hours, but occasionally can last for up to one week. -It is fine to wear makeup on the treated area the day after treatment -Do not rub, scratch, or pick at the treated area -You may apply ice to reduce swelling and discomfort for the first 4 hours after your treatment- it is best to ice immediately after your treatment and for 10 minutes of each hour for the 4 hours after your treatment -Do not exercise for 24 hours after your treatment -Please call the office immediately if the area becomes tender, reddened or shows signs of infection. - Avoid exposure to the sun. If sun exposure is expected, apply an SPF 30 or higher sunblock to prevent pigmentation changes until the lesion is healed. Care Of The Treated Area -You can apply a gentle moisturizer or Aqpahor/Vaseline to the treated area. It is important to keep the area moist until healed. -Showers are permitted, but gently pat the area dry. Do not rub with a towel or washcloth as the area is extremely delicate while the bruising (purpura) are present. -Any discomfort you may have (usually not lasting more than a few hours, if any) can be relieved with acetaminophen (Tylenol) or ice packs. If you have any questions or concern, please call the office where you had your treatment. Cindy Jain MD Dermatology & Cosmetic Surgery documented in this encounter [facility] 03-16-2022 Note HNO ID: [id number] Author: Cary Verma MD Service: ? Author Type: Physician Type: Progress Notes Filed: 03/16/2022 1:18 PM Note Text: Established Patient RUBIA: 01/16/2022 LASER SURGERY PROCEDURAL TIME OUT: Time out verification includes: Audible time-out documented: Yes. Time: 1105 am Two Patient Identifiers Correct side and site marking Accurate Consent Agreement on the procedure to be done Correct Positioning Imaging and Test Results Properly Labeled and Displayed if applicable Safety Precautions Based on Patient History or Medication ANESTHETIC: ice DX: Rosacea LASER PROCEDURE: V-beam PROTECTIVE EYEWEAR APPLIED TO PATIENT'S EYES: goggles. ALL PERSONNEL IN THE ROOM ARE WEARING PROTECTIVE GOGGLES SPECIFIC TO THE LASER WAVELENGTH FOR THIS TREATMENT. TREATMENT #: 1 LASER: v-beam LASER: V BEAM SPOT SIZE:3 x 10 mm; ENERGY FLUENCE: 12.50J/cm2; MODE (TIME): 40 msec; SPRAY DELAY: 30/20;NUMBER OF PULSES: 25 SPOT SIZE:10 mm; ENERGY FLUENCE: 7.0J/cm2; MODE (TIME): 10 msec; SPRAY DELAY:30/20 ;NUMBER OF PULSES: 228 COMMENTS: Patient tolerated procedure well. and Post care instructions provided, understanding verbalized. Sign Out Discussion: Completed Post op instructions given / with verbal understanding Skin Care after Laser Treatment. 1) Achrochordon - removed today with scissors Charge Code: $300 V-beam laser full face plus $50 skin tag removal Return to clinic 4-6 weeks The documentation for this note was completed by Pebbles Sherman acting as scribe for Cary Verma MD. March 16, 2022 10:52 AM. I agree with the Chief Complaint, ROS, and Past Histories independently gathered by the clinical sales support assistant and the remaining scribed note accurately describes my personal service to the patient. Dr. Cary Verma 03/16/[address] [facility] 03-16-2022 History of Presen t illness Narrative Established Patient RUBIA: 01/16/2022 LASER SURGERY PROCEDURAL TIME OUT: Time out verification includes: Audible time-out documented: Yes. Time: 1105 am Two Patient Identifiers Correct side and site marking Accurate Consent Agreement on the procedure to be done Correct Positioning Imaging and Test Results Properly Labeled and Displayed if applicable Safety Precautions Based on Patient History or Medication ANESTHETIC: ice DX: Rosacea LASER PROCEDURE: V-beam PROTECTIVE EYEWEAR APPLIED TO PATIENT'S EYES: goggles. ALL PERSONNEL IN THE ROOM ARE WEARING PROTECTIVE GOGGLES SPECIFIC TO THE LASER WAVELENGTH FOR THIS TREATMENT. TREATMENT #: 1 LASER: v-beam LASER: V BEAM SPOT SIZE:3 x 10 mm; ENERGY FLUENCE: 12.50J/cm2; MODE (TIME): 40 msec; SPRAY DELAY: 30/20;NUMBER OF PULSES: 25 SPOT SIZE:10 mm; ENERGY FLUENCE: 7.0J/cm2; MODE (TIME): 10 msec; SPRAY DELAY:30/20 ;NUMBER OF PULSES: 228 COMMENTS: Patient tolerated procedure well. and Post care instructions provided, understanding verbalized. Sign Out Discussion: Completed Post op instructions given / with verbal understanding Skin Care after Laser Treatment. 1) Achrochordon - removed today with scissors Charge Code: $300 V-beam laser full face plus $50 skin tag removal Return to clinic 4-6 weeks The documentation for this note was completed by Pebbles Sherman acting as scribe for Cary Verma MD. March 16, 2022 10:52 AM. I agree with the Chief Complaint, ROS, and Past Histories independently gathered by the clinical sales support assistant and the remaining scribed note accurately describes my personal service to the patient. Dr. Cary Verma 03/16/22 documented in this encounter [facility] 03-16-2022 Instructions Pebbles Sherman - 03/16/2022 10:52 AM EDT V-beam Post Care Instructions It is normal for the skin to be red and swollen after your laser treatment. Most of the redness and swelling subsides within 24 to 48 hours, but occasionally can last for up to one week. -It is fine to wear makeup on the treated area the day after treatment -Do not rub, scratch, or pick at the treated area -You may apply ice to reduce swelling and discomfort for the first 4 hours after your treatment- it is best to ice immediately after your treatment and for 10 minutes of each hour for the 4 hours after your treatment -Do not exercise for 24 hours after your treatment -Please call the office immediately if the area becomes tender, reddened or shows signs of infection. - Avoid exposure to the sun. If sun exposure is expected, apply an SPF 30 or higher sunblock to prevent pigmentation changes until the lesion is healed. Care Of The Treated Area -You can apply a gentle moisturizer or Aqpahor/Vaseline to the treated area. It is important to keep the area moist until healed. -Showers are permitted, but gently pat the area dry. Do not rub with a towel or washcloth as the area is extremely delicate while the bruising (purpura) are present. -Any discomfort you may have (usually not lasting more than a few hours, if any) can be relieved with acetaminophen (Tylenol) or ice packs. If you have any questions or concern, please call the office where you had your treatment. Dermatology & Cosmetic Surgery documented in this encounter [facility] 01-16-2022 Note HNO ID: [id number] Author: Cary Verma MD Service: ? Author Type: Physician Type: Progress Notes Filed: 01/16/2022 11:34 AM Note Text: [facility] Department of Dermatology Chief Complaint: Patient presents with: Rosacea Date of last visit to [facility]: 05/16/2009 History of Present Illness: Ramonita Lopez is a 72 year old female Patient is here for: # Rosacea Location: Face Duration: 20 years Symptoms (growing, itching, bleeding, tender): None Current Treatments: None Past Treatments: Laser tx Occasionally gets pimple like bumps PERTINENT PAST DERMATOLOGIC HISTORY: -Personal History of Skin Cancer: No -Personal History of Atypical Moles: No -Personal History of Extensive Sun Exposure/Blistering Sunburns:Yes -History of tanning bed usage: No -Does patient use sunscreen Yes -Is the patient immunosuppressed: No FAMILY HISTORY: -Family History of Skin Cancer: No REVIEW OF SYSTEMS: Patient feels well and denies any recent fevers, chills, or night sweats. PHYSICAL EXAM: -General: well appearing, in no acute distress -Neurology: alert and oriented times three -Psychiatry: appropriate mood/affect Skin: Lay phototype: I Skin exam performed of Face, left arm Erythema and TLGs over cheeks, forehead, nose, chin Left axilla with skin colored fleshy papule ASSESSMENT AND PLAN: Erythematotelangiectatic and Papulopustular rosacea - We discussed the diagnosis, pathogenesis, and expected clinical course of rosacea, including the chronic and waxing/waning nature of this condition. Recommend practicing strict sun protection (using sunscreen and general photoprotection) and avoidance of any suspected triggers (commonly heat, spicy foods, alcohol, or sunlight). Recommend gentle moisturizers, such at CeraVe, CeraVe SA, or Cetaphil. - Prescribed topical metronidazole twice daily. Side effects reviewed. - Recommend V beam to improve appearance of erythema/TLGs, quoted $200 per treatment, needs at least 2-3 treatments. Laser reviewed at length including treatment expectations, need for multiple treatment and risks including pain, swelling, redness, blistering, hyper/hypopigmentation, texture change, scarring. Acrochordon - Will plan on snip excision at follow up visit for vbeam -discussed to contact clinic immediately for evaluation if any new, changing, or symptomatic lesions arise Patient verbalizes understanding and agrees with treatment plan and will contact us with any further questions or concerns. Return to clinic PRN for vbeam and acrochoron or sooner for any change in/worsening of condition or if any new/changing/symptomatic lesions arise. Extension Service Advisor Attestation: The documentation for this note was completed by Kari Villegas Ma acting as scribe for Cary Verma MD. January 16, 2022 10:46 AM. I agree with the Chief Complaint, ROS, and Past Histories independently gathered by the clinical sales support assistant and the remaining scribed note accurately describes my personal service to the patient. Cary Verma MD [facility] Diagnosis Encounter for cosmetic procedure- Primary [facility] Diagnosis Encounter for cosmetic laser procedure- Primary Rosacea [facility] Diagnosis Rosacea- Primary Pityriasis folliculorum documented in this encounter [facility] Reason for Referral Specialty Diagnoses / Procedures Referred By Marian bey [place] [id number] [place] [id number] Referral ID Status Reason Start Date Expiration Date Visits Re quested Visits Authorized [id number] Closed 1 1 Summary Purpose Family History No Family History Records Found Advance Directives No Advanced Directives Records Found Additional Source Comments Source Comments (unrecognize d section and content) In the event this informatio n is protected by the Federal Confidentiality of Alcohol and Drug Abuse Patient Records regulations: The Federal rules restrict any use of the information to criminally investigate or prosecute any alcohol or drug abuse patient.[facility] the event this information is protected by the Federal Confidentiality of Alcohol and Drug Abuse Patient Records regulations: The Federal rules restrict any use of the information to criminally investigate or prosecute any alcohol or drug abuse patient.[facility] the event this information is protected by the Federal Confidentiality of Alcohol and Drug Abuse Patient Records regulations: The Federal rules restrict any use of the information to criminally investigate or prosecute any alcohol or drug abuse patient.[facility] the event this information is protected by the Federal Confidentiality of Alcohol and Drug Abuse Patient Records regulations: The Federal rules restrict any use of the information to criminally investigate or prosecute any alcohol or drug abuse patient.[facility] Reason for Visit (unrecogniz ed section and content) Reason Comments Rosacea Reason Comments Follow Up Reason Comments Procedure Derm Laser Surgery Care Teams (unrecognized sec tion and content) [employer] Worker Relationship Specialty Start Date End Date Cindy Perez PCP - General 02/20/01 [employer] Tr[employer] Worker Relationship Specialty Start Date End Date GridleyCindy PCP - General 02/20/01 [employer]ing Tr[employer] Worker Relationship Specialty Start Date End Date GridleyCindy PCP - General 02/20/01 INFORMATION SOURCE (unrecogn ized section and content) FOR RECORDS PERTAINING TO PATIENTS WHO ARE OR HAVE BEEN ENROLLED IN A CHEMICAL DEPENDENCY/SUBSTANCEABUSE PROGRAM, SOME INFORMATION MAY BE OMITTED. This clinical summary was aggregated from multiple sources. Caution should be exercised in using it in the provision of clinical care. This summary normalizes information from multiple sources, and as a consequence, information in this document may materially change the coding, format and clinical context of patient data. In addition, data may be omitted in some cases. CLINICAL DECISIONS SHOULD BE BASED ON THE PRIMARY CLINICAL RECORDS. [facility]. provides no warranty or guarantee of the accuracy or completeness of information in this document.
--- NOTE | 2023-11-27 07:11 | PCM.HP.BLA ---
History and Physical Date of Admission: 11/27/23 Date of Service: 10/29/23 MR#: [id number] Acct: [id number] Name: AMRIT BORRERO Rep #: [id number] : 1950 Provider: Dr. Bev Marte MD Age/Sex: 73/F Location: [facility] Status: Signed Signed Intake Vital Signs 08/05/2311:10 10/29/2314:43 Height 5 ft 4 in 5 ft 4 in Weight: 162 lb BMI 27.8 BP 172/81 H Blood Pressure Location Rt brachial Position Sitting Respiration 17 Pulse 69 Pulse Source Monitor Temp 97.2 F L Temp Source Temporal Pulse Oximetry (%) 99 Oxygen Delivery Method room air Intake Visit Reasons: POSITIVE COLOGUARD Chief Complaint: positive cologuard Is patient in pain?: No Allergies No Known Allergies Allergy (Verified 10/29/23 14:44) Medications calcium carbonate 600 mg-vitamin D3 10 mcg (400 unit) capsule 1 cap PO DAILY 03/01/23 [History Confirmed 10/29/23] PFSH Medical History Arrhythmia Cerumen impaction Headache Health care maintenance Hearing loss History of cardiac murmur Hyperlipidemia Hypertension no sense of smell or taste Osteopenia Positive colorectal cancer screening using Cologuard test PVC (premature ventricular contraction) Rosacea Surgical History H/O tubal ligation History of 2 sections History of cataract surgery Family History Sister Diabetes Depression Myocardial infarctionFather Depression Pancreatic cancerGrandfather AlcoholismMother Lung cancer Social History Smoking Status: Never smoker alcohol intake: current alcohol intake frequency: holidays/special occasions only Alcohol type: beer and wine substance use type: does not use what type of physical activity do you participate in: walking frequency: daily HPI HPI HPI: 73-year-old female presents due to positive Cologuard. Patient was positive on 08/22/2023. Patient states that on 09/14/2023 she had some bright red blood per rectum small amount x 1 and her only time. Patient denies having hemorrhoids. Patient did call the office in early September however she did not return voicemails that were left to schedule an appointment. Patient denies any family history of colon cancer, patient's never had previous colonoscopy. Patient has bowel movements daily. Denies any chronic abdominal pain/nausea/vomiting/reflux. ROS General General: No weight change, appetite, fatigue, colon cancer, breast cancer or weakness HEENT HEENT: No difficulty swallowing, eye injury, eye surgery, swollen glands or hoarseness Endo Endocrine: No thyroid disease, diabetes mellitus, thyroid cancer, Hair loss, heat intolerance or cold intolerance Skin Skin: No rash or changing moles Musc Musculoskeletal: No back problems, arthritis, rheumatoid arthritis, gout or joint pain Cardio Cardiovascular: Yes murmur and high blood pressure; No pacemaker, heart disease, atrial fibrillation, heart attack, heart stent, palpitations, shortness of breat with exertion or chest pain Psych Psychiatric: No depression, anxiety or hearing voices Resp Respiratory: No shortness of breath, No sleep apnea, No cough, No COPD, No asthma, No emphysema and No wheezing Gastro Gastrointestinal: No abdominal pain, No nausea or vomiting, No diarrhea, No constipation, Yes blood in stool, No acid reflux, No hemorrhoids, No ulcers, No gallbladder problem and No black,tarry stools Christopher Hematologic: No blood thinners, No blood disorders, No bleeding, No anemia and No blood clots Neuro Neurologic: No system reviewed and no additional complaints, except as documented, No as per HPI, No abnormal gait, No abnormal hearing, No abnormal movements, No abnormal speech, No behavioral changes, No burning sensations, No confusion, No convulsions, No disequilibrium, No dizziness, No localized weakness, No frequent falls, No headache(s), No lack of coordination, No loss of vision, No memory loss, No numbness, No other visual disturbances, No radicular pain, No restless legs, No sensory deficit, No syncope, No tingling, No tremor(s), No weakness and No other Exam Const General: cooperative, healthy appearing, comfortable and no acute distress [facility] Head: normocephalic and atraumatic Neck Neck: supple Resp Effort & Inspection: normal respiratory effort Cardio Rate: regular rate GI Inspection: non-distended Palpation: soft, no hernias and nontender Skin General: no rashes or lesions noted Neuro General: CN's II-XI intact bilaterally Extrem General: normal to inspection Psych Mental Status: mental status grossly normal Attitude: cooperative Assessment and Plan Assessment and Plan (1) Positive colorectal cancer screening using Cologuard test: Status: Acute Plan I have discussed the above with the patient. I have offered the patient colonoscopy for evaluation. I have explained the risks/benefits of the procedure and described the procedure. I have discussed the risks with the patient, including but not limited to: infection, bleeding, perforation of the GI tract requiring emergency surgery, inability to complete the procedure, injury to any internal organs, complications of anesthesia, etc. - the patient understands and agrees to proceed. I have answered all the patient's questions to the patient's satisfaction and the patient has no further questions. The patient has been given instructions for the colon cleansing preparation. 1 day of clears, MiraLAX Dulcolax split prep. Bev Marte M.D. Pager: [phone] [facility] [address] [place] [address], [facility], [address] [place] [address] Office: [phone] Coding Level of Care Code Off vis,new,level 3 Diagnoses Positive colorectal cancer screening using Cologuard test R19.5 10/29/23 1530 <Electronically signed by Bev Marte MD> Date Bev Marte MD
[2023-11-27] MEDS: Lactated Ringers 1,000 ML 15 ML IV (07:25)
[2023-11-27 07:29] VITALS: BP 162/79; PULSE 86; RESP 16; TEMP 36.6; O2SAT 100; BMI 27.2
--- NOTE | 2023-11-27 08:15 | COLBX_PTH ---
PATHOLOGY RESULTS PATIENT: AMRIT BORRERO REEMA LOC: EN U#:[id number] AGE/SX: 73/F ROOM: RE11/27/[address]: Dr. Bev Marte MD : 1950 BED: DIS: 11/27/2023 SPEC #: [id number] RECD: 11/27/23 12:32 STATUS: CHERRIE NORTON #: [id number] KATHERYN: 11/27/23 08:[address]: Bev Marte DEPT: SURGICAL PATHOLOGY RECD BY: Leticia Toribio ENTERED: 11/27/23 12:32 SP TYPE: COLON BX OTHR DR: Dr. Junior Robert MD Tissues: Rectum, NOS Procedures: Surgery Specimen Level IV HEADER OPERATION: Colonoscopy with polyp biopsy and polypectomy PRE-OP DIAGNOSIS: Positive Cologjim, screening TISSUE SUBMITTED: Rectal polyp with polypectomy and biopsy MICROSCOPIC DIAGNOSIS Rectal polyp, biopsy: Fragments of hyperplastic polyp. AM:tate 11/28/2023 MICROSCOPIC DESCRIPTION Slides are reviewed. GROSS DESCRIPTION Received in fixative is one container labeled with the patient's name and designated rectal polyp. The specimen consists of multiple irregular fragments of light welch soft tissue that in aggregate measure 1.0 x 0.5 x 0.1 cm. The specimen is totally submitted in one cassette. / SJ:tate 11/27/2023 TC:5 CPT: 85650
--- NOTE | 2023-11-27 08:49 | OP.COLON_ITS ---
Patient Name: Ramonita Lopez Procedure Date: 11/27/2023 8:13 AM Date of : 1950 Age: 73 Procedure: Colonoscopy Indications: Positive Cologuard test Providers: Bev Marte MD Referring MD: Junior Robert MD Medicines: Monitored Anesthesia Care Patient Profile: This is a 73 year old female. Last Colonoscopy: none. The patient's first colonoscopy is today. Complications: No immediate complications. Procedure: Pre-Anesthesia Assessment: - Prior to the procedure, a History and Physical was performed, and patient medications and allergies were reviewed. The patient's tolerance of previous anesthesia was also reviewed. The risks and benefits of the procedure and the sedation options and risks were discussed with the patient. All questions were answered, and informed consent was obtained. Prior Anticoagulants: The patient has taken no anticoagulant or antiplatelet agents. ASA Grade Assessment: Per anesthesia. After reviewing the risks and benefits, the patient was deemed in satisfactory condition to undergo the procedure. After I obtained informed consent, the scope was passed under direct vision. Throughout the procedure, the patient's blood pressure, pulse, and oxygen saturations were monitored continuously. The Colonoscope was introduced through the anus and advanced to the cecum, identified by the appendiceal orifice, ileocecal valve and palpation. The colonoscopy was performed without difficulty. The patient tolerated the procedure well. The quality of the bowel preparation was good. Scope In: 8:17:03 AM Scope Withdrawal Time 0 hours 15 minutes 39 seconds Scope Out: 8:42:35 AM Total Procedure Duration Time 0 hours 25 minutes 32 seconds Findings: Two semi-pedunculated polyps were found in the rectum. The polyps were less than 5 mm in size. These polyps were removed with a cold biopsy forceps. Resection and retrieval were complete. Multiple small-mouthed diverticula were found in the sigmoid colon, descending colon and transverse colon. The exam was otherwise without abnormality. Impression: - Two less than 5 mm polyps in the rectum, removed with a cold biopsy forceps. Resected and retrieved. - Diverticulosis in the sigmoid colon, in the descending colon and in the transverse colon. - The examination was otherwise normal. Recommendation: - Discharge patient to home. - Resume previous diet. - Continue present medications. - Await pathology results. - Repeat colonoscopy in 5 years for surveillance based on pathology results. Procedure Code(s): --- Professional --- 63920, Colonoscopy, flexible; with biopsy, single or multiple Diagnosis Code(s): --- Professional --- D12.8, Benign neoplasm of rectum R19.5, Other fecal abnormalities K57.30, Diverticulosis of large intestine without perforation or abscess without bleeding CPT copyright 2021 [employer]. All rights reserved. The codes documented in this report are preliminary and upon hyperion analyst review may be revised to meet current compliance requirements. MD Bev Michel MD 11/27/2023 8:48:36 AM This report has been signed electronically. Number of Addenda: 0 Note Initiated On: 11/27/2023 8:13 AM
--- NOTE | 2023-11-27 08:49 | OP.CCLET_ITS ---
11/27/2023 Junior Robert MD [address] [place] [address] [place] [address] Re : Colonoscopy procedure for Ramonita Smithcessor Dear Dr. Robert This procedure was performed on Monday, November 27, 2023. My impressions and recommendations are as follows: Impressions : - Two less than 5 mm polyps in the rectum, removed with a cold biopsy forceps. Resected and retrieved. - Diverticulosis in the sigmoid colon, in the descending colon and in the transverse colon. - The examination was otherwise normal. Recommendations : - Discharge patient to home. - Resume previous diet. - Continue present medications. - Await pathology results. - Repeat colonoscopy in 5 years for surveillance based on pathology results. My findings are described in the full procedure note, which is enclosed. If I can be of further assistance, please feel free to contact me at Doctor phone number(s): , Work: . Sincerely, MD Bev Michel MD 11/27/2023 8:48:36 AM This report has been signed electronically.
[2023-11-27 08:55] VITALS: BP 134/76; BP 162/79; PULSE 75; RESP 16; TEMP 36.5; O2SAT 100
[2023-11-27 09:00] VITALS: BP 140/80; BP 162/79; PULSE 74; RESP 16; O2SAT 99
[2023-11-27 09:05] VITALS: BP 142/73; BP 162/79; PULSE 76; RESP 16; TEMP 36.8; O2SAT 99
[2023-11-27 09:21] VITALS: BP 162/79
== END 2023-11-27 09:42 | disposition home or self-care (01) ==
LOC: EN 06:57 → AC 06:57
PROVIDERS: PCP Internal Medicine; Referring Provider Internal Medicine; Visit Provider Surgery
PROC: 0DJD8ZZ Inspection of Lower Intestinal Tract, Via Natural or Artificial Opening Endoscopic (ICD-10-PCS; CPT 45378; principal; 2023-11-27 08:10)
DX: K62.1 Rectal polyp (principal); K57.30 Diverticulosis of large intestine without perforation or abscess without bleeding; I10 Essential (primary) hypertension; E78.5 Hyperlipidemia, unspecified
CPT/HCPCS: 45380; 88305; J7120; J2405

== ENCOUNTER → 2025-08-03 | Outpatient (CLI) | payer MEDICARE, OTHER, SELFPAY ==
--- OUTSIDE RECORDS SUMMARY | 2025-03-05 13:00 | XMS RPT_ITS ---
Author Name Auto Generated Organization [facility] Care Team Providers Care Heel Sprayer Name Role Phone Diego Allan Attending Unavailable No Referring Doc, No Ref Doc Referring Tiffany vailable Diego Allan Attending Unavailable No Referring Doc, No Ref Doc Referring Tiffany vailable Diego Allan Attending Unavailable Diego Allan Referring Unavailable Diego Allan Attending Unavailable Diego Allan Referring Unavailable Diego Allan Attending Unavailable Diego Allan Referring Unavailable PROBLEMS DATE TYPE CONDITION / CODE ATTENDING STATUS [facility] 02/25/2025 Working Diagnosis Other secondary cataract, left eye / H26.492(ICD-10) Diego Allan Active [facility] 02/19/2025 Working Diagnosis Other secondary cataract, right eye / H26.491(ICD-10) Digeo Allan Active [facility] 12/31/2024 Working Diagnosis Dry eye syndrome of both eyes / H04.123(ICD-10) Diego Allan [facility] 12/31/2024 Working Diagnosis Presence of pseudophakia / Z96.1(ICD-10) Diego Allan [facility] 12/31/2024 Working Diagnosis PCO (posterior capsular opacification), bilateral / H26.493(ICD-10) Diego Alaln [facility] PROCEDURES DATE CODE DESCRIPTION STATUS SOURCE 03/05/2025 98976(CPT-4) POSTOP FOLLOW-UP VISIT Completed [facility] 02/25/2025 23612(CPT-4) AFTER CATARACT L ASER SURGERY Completed [facility] 02/19/2025 03917(CPT-4) AFTER CATARACT L ASER SURGERY Completed [facility] 12/31/2024 06393(CPT-4) OFFICE/OUTPATIEN T VISIT, EST Completed [facility] RESULTS No Result Records Found ALLERGIES No Allergies Records Found ENCOUNTERS ADMIT/DISCHARGE ACCOUNT NUMBER ADMITTING ENCOUNTER CLASS LOC ATION SOURCE 03/05/2025 [id number] Ambulatory Building[facility] 02/25/2025 [id number] Ambulatory Building:[facility] 02/19/2025 [id number] Ambulatory Building:[facility] 01/10/2025 [id number] Ambulatory Building:[facility] 12/31/2024 [id number] Ambulatory Building:[facility] PAYERS ENCOUNTER GUARANTOR PAYER SUBSCRIBER SOURCE 03/05/2025 Ramonita NguyenorDOB: [place], [place] [address]Bcs: (HP) Primary Insurance:[place]are [place]: [id number] e Date:4603-91-67Izmr Name:Asa Aguilera [address] [place] [id number]: Ramonita mSithcessorDOB: [id number] [place], [place] [address]Vsd: () [facility] 03/05/2025 Secondary Insurance:[facility] Healthcare Supplement [id number] Number: [id number] e Date:6783-58-50BH Willy [id number] Claims [place], [place] [phone]: Ramonita SmithcessorDOB: [id number] [place], [place] [address]Uac: () [facility] 02/25/2025 Ramonita SmithcessorDOB: [place], [place] [address]Poa: () Primary Insurance:[place]are [place] Number: [id number] e Date:3907-61-37Wlst Name:DEANA Ruano [id number]: Ramonita G SarahcessorDOB: [id number] [place], [place] [address]Jba: (HP) [facility] 02/25/2025 Secondary Insurance:[facility] Healthcare Supplement [id number] Number: [id number] e Date:6837-78-22XI [place] [id number] Claims [place], [place] [id number]: Ramonita SmithcessorDOB: [id number] [place], [place] [address]Rxw: (HP) [facility] 02/19/2025 Ramonita SmithcessorDOB: [place], [place] [address]Hut: (HP) Primary Insurance:[place]icare [place] Number: [id number] e Date:6566-41-81Dljr Name:DEANA Ruano [id number]: Ramonita Perales SarahcessorDOB: [id number] [place], [place] [address]Cqx: (HP) [facility] 02/19/2025 Secondary Insurance:[facility] Healthcare Supplement [id number] Number: [id number] e Date:9773-22-35[id number] Claims [place], [place] [id number]: Ramonita SmithcessorDOB: [id number] [place], [place] [address]Ibw: (HP) [facility] 12/31/2024 Ramonita SmithcessorDOB: [place], [place] [address]Dww: (HP) Primary Insurance:[place]are [place] Number: [id number] e Date:3904-25-20Niki Name:Asa [id number] [id number]: Ramonita NguyenorDOB: [id number] [place], [place] [address]Lty: (HP) [facility] 12/31/2024 Secondary Insurance:[facility] Supplement [id number] Number: [id number] e Date:5501-70-32GC Willy [id number] Claims [place], [place] [id number]: Ramonita NguyenorDOB: [id number] [place], [place] [address]Qvu: () [facility]
== END | disposition home or self-care (01) ==
PROVIDERS: PCP Internal Medicine; Visit Provider Nurse Practitioner Family
DX: R39.15 Urgency of urination (principal)
CPT/HCPCS: 87077; 87086; 87088; 87186